=== PATIENT | male | born 2000 | race African-American/Black ===

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

== ENCOUNTER 2020-04-27 17:37 | Emergency (ER) | payer MEDICAID, SELFPAY ==
[2020-04-27] MEDS ORDERED: Acetaminophen 500 MG TAB ONE (17:55)
[2020-04-27] MEDS ORDERED: Ibuprofen 200 MG TAB ONE (17:55)
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
== END 2020-04-27 18:54 | disposition home or self-care (01) ==
LOC: ERS 17:37
DX: M54.5 Low back pain (principal); V43.52XA Car driver injured in collision with other type car in traffic accident, initial encounter
CPT/HCPCS: 72100

== ENCOUNTER 2021-12-27 18:37 | Emergency (ER) | payer SELFPAY | END 2021-12-27 20:05 | disposition home or self-care (01) | LOC: ERS 18:37 | DX: S93.402A Sprain of unspecified ligament of left ankle, initial encounter (principal); X50.1XXA Overexertion from prolonged static or awkward postures, initial encounter; W22.8XXA Striking against or struck by other objects, initial encounter ==

== ENCOUNTER 2022-04-26 02:23 | Emergency (ER) | payer SELFPAY | END 2022-04-26 02:50 | disposition left against medical advice (07) | LOC: ERS 02:23 | DX: Z53.21 Procedure and treatment not carried out due to patient leaving prior to being seen by health care provider (principal) ==

== ENCOUNTER 2023-03-25 11:51 | Emergency (ER) | payer BC, SELFPAY | END 2023-03-25 13:00 | disposition home or self-care (01) | LOC: ERS 11:51 | DX: R21 Rash and other nonspecific skin eruption (principal); F17.290 Nicotine dependence, other tobacco product, uncomplicated | CPT/HCPCS: 99282 ==

== ENCOUNTER 2023-04-27 18:14 | Emergency (ER) | payer BC ==
[2023-04-27] MEDS ORDERED: Acetaminophen 500 MG TAB ONE (20:25)
[2023-04-27 20:40] LABS: SARS-CoV-2 NAA Rapid Test Not Detected (NotDetected)
[2023-04-27] MEDS ORDERED: Ondansetron ODT 4 MG TAB ONE (20:52)
== END 2023-04-27 21:27 | disposition home or self-care (01) ==
LOC: ERS 18:14
DX: B34.9 Viral infection, unspecified (principal); F17.290 Nicotine dependence, other tobacco product, uncomplicated; Z20.822 Contact with and (suspected) exposure to COVID-19
CPT/HCPCS: 87081; 87430; 99283; Q0162